=== PATIENT | male | born 1970 | race Caucasian/White ===

== ENCOUNTER 2019-04-13 09:06 | Outpatient (CLI) | payer MEDICARE, MEDICAID, SELFPAY ==
--- NOTE | 2019-04-13 09:21 | XR_ITS ---
WS: [id number] Chest 2 views, 04/13/2019 Clinical Data: LUNG MASS Comparison: AP chest, 02/19/2019. Findings: No nodules, masses or effusions are seen. The heart is normal. The pulmonary vascularity is not increased. No pneumonia or pneumothorax is seen. There is blunting of the left costophrenic angl e. There is volume loss of the left lung as a result of thoracic surgery. XR/XR chest 2V* [id number] Impression: Negative for acute cardiopulmonary disease.
== END 2019-04-13 09:07 | disposition home or self-care (01) ==
PROVIDERS: Family Provider Nurse Practitioner Family; PCP Nurse Practitioner Family; Visit Provider Urology
DX: R91.8 Other nonspecific abnormal finding of lung field (principal)
CPT/HCPCS: 71046

== ENCOUNTER 2019-12-03 09:51 | Outpatient (CLI) | payer MEDICARE, MEDICAID, SELFPAY ==
[2019-12-03 11:10] LABS: Basophils % 0.6 %; Eosinophils # 0.1 10^3/uL (0.0-0.8); Eosinophils % 2.5 %; Hematocrit 43.7 % (42.0-52.0); Lymphocytes # 0.7 10^3/uL (0.8-4.8); Lymphocytes % 20.5 %; Mean Corpuscular HGB Conc 34.3 g/dL (30.0-36.0); Mean Corpuscular Hemoglobin 35.4 pg (28.0-34.0); Mean Corpuscular Volume 103.1 fL (80-94); Mean Platelet Volume 10.1 fL (7.4-10.4); Monocytes # 0.2 10^3/uL (0.2-0.9); Monocytes % 6.6 %; Neutrophils # 2.51 10^3/uL (1.8-7.7); Neutrophils % 69.5 %; Nucleated Red Blood Cells % 0 %; Platelet Count 105 10^3/cmm (130-400); Red Blood Count 4.24 10^6/uL (4.1-5.3); Red Cell Distribution Width 12.3 % (12.1-15.1); White Blood Count 3.6 10^3/uL (4.0-10.0)
[2019-12-03 11:48] LABS: Alanine Aminotransferase 33 U/L (0-41); Alkaline Phosphatase 120 IU/L (40-130); Anion Gap 17.1 (5-19); Aspartate Amino Transferase 39 U/L (0-40); Blood Urea Nitrogen 17 mg/dL (6-20); Calcium 9.1 mg/dL (8.5-10.5); Carbon Dioxide 24 mmol/L (22-29); Chloride 101 mmol/L (98-107); Globulin 3.3 g/dL (1.3-4.6); Glomerular Filtration Rate 89.3 mL/min (90-130); Glucose 351 mg/dL (65-115); Osmolality Calculated 296 mOsm/kg (285-295); Potassium 4.1 mmol/L (3.5-5.1); Sodium 138 mmol/L (136-145); Total Bilirubin 0.6 mg/dL (0.15-1.2); Total Protein 7.3 g/dL (6.6-8.7)
[2019-12-03 14:46] LABS: Thyroid Stimulating Hormone 1.49 uIU/mL (0.27-4.20)
[2019-12-03 15:08] LABS: Carcinoembryonic Antigen 5.8 ng/mL (0.0-4.7)
--- NOTE | 2019-12-03 19:05 | ONC FU_ITS ---
Dr. Cabrales Patient Follow-Up Note Patient: Aicha Owen Unit #: [id number]: 1970 Dicatated By: Giancarlo Cabrales M.D.Date of Visit:Dec 03, 2019 Onc Med Follow-up/Prog Note Chief Complaint: Colon cancer. History of Present Illness: This is a 49 year-old man with low-grade adenocarcinoma of the ascending colon, stage IIIC (T3, N2b, M0), wild-type K-amie. He had presented in October 2013 with acute rectal bleeding. His hemoglobin nadired at 8.5 g/dL. Colonoscopy revealed an ascending colon mass, consistent with well-differentiated adenocarcinoma on the biopsy. A CT of the abdomen and pelvis on 10/29/2013 showed an ascending colon neoplasm with a small mesenteric lymph nodes medial to the colon lesion. There were no liver lesions seen. On 11/02/13 he underwent an exploratory laparotomy and right hemicolectomy with ileocolic anastomosis. Surgical pathology showed 4.3 cm low grade adenocarcinoma invading through muscularis propria into pericolic tissue, margins negative, 9/11 lymph nodes involved with metastatic disease, positive lymphatic invasion, negative venous invasion. K-AMIE mutation was not detected. His disease was thus stage IIIC (pT3, N2b, M0). Post operative course was complicated with ileus, resolved with medical management alone. He was first seen by Dr. Orr on 11/21/2013. Lacking medical insurance coverage, the patient could not afford staging PET/CT. He was recommended to begin adjuvant chemotherapy with FOLFOX regimen. Left SC port was placed. However, on 12/19/2013 he required an admission to the hospital with an acute abdominal examination. A CT of the abdomen and pelvis demonstrated unusual intraperitoneal non-intestinal air collections. The surgical intervention was not performed, the patient was treated with IV antibiotics only. Clinically, his picture improved. Repeat CT on 12/23/2013 was with unchanged findings. The patient was discharged on oral Levaquin and Flagyl therapy. Adjuvant chemotherapy with FOLFOX regimen for12 cycles was delivered 01/08/2014 -07/01/14. His treatment was complicated with neutropenia and peripheral neuropathy requiring dose adjustments. With cycle 10 the oxaliplatin was stopped due to worsening painful neuropathy in legs. A followup CT abdomen and pelvis on 06/13/2014 showed clearing of anterior low peritoneal fluid collection. There was no evidence of metastatic disease. He also complained of lower back pain and bilateral hip pain. MRI of the L-spine showed significant degenerative disease, but no evidence of metastatic disease. Surveillance colonoscopy on 10/24/2014 showed internal hemorrhoids. There was no evidence of recurrent disease. Restaging CT of the chest abdomen pelvis on 07/17/2015 was without evidence of metastatic disease. There was a progression of the fatty infiltration of liver. He continued on observation/expectant management. I had seen him for a follow-up visit in November 2017. He had multiple complaints, but his subsequent surveillance CT scans showed no evidence of neoplastic process in the chest, abdomen, and pelvis. His surveillance CT scans on 12/31/2018 reported a new left upper lobe pulmonary nodule measuring 2 x 2 by 1.5 cm. It was felt to be suspicious for a metastatic lesion or new primary lung neoplasm. Further evaluation with PET/CT on 01/06/2019 showed a 2.1 cm nodule with cavitation in the left upper lobe which was FDG avid, SUV 8.7, consistent with metastatic disease. There were no other areas of abnormal uptake on that study. Given those findings, he was recommended to see Dr. Sigala for possible resection, as the lesion was not in a location which was accessible for biopsy. After consultation with Dr. Sigala, he did agree to proceed with the resection. On 02/14/2019 he underwent left thoracoscopy with wedge resection of the medial aspect of the left upper lobe. He was noted to have adhesions anteriorly and medially in the left upper lobe which was felt to be consistent with the area noted on the CT scanner and the PET/CT. No other abnormal lesion was identifiable at the time of the procedure. Pathology on the wedge resection showed focal acute passive congestion with no tumor or significant atypia identified. With those findings, he continued on observation/expectant management. His subsequent follow-up was complicated by post thoracotomy chest pain, but there was no evidence of recurrence of the colon cancer. His medical illnesses have otherwise been limited to hypertension and chronic low back pain. He is a nonsmoker. INTERIM HISTORY: He is seen for a follow-up visit. He complains that he wears out pretty easily, but he is able to do light work. ECOG score is 1. Appetite is somewhat variable. He had lost weight, but then regained it. He is currently up 4 pounds compared to his weight here 1 year ago. He does not have fever, he does have some night sweating. He is sometimes short of breath, mainly with hot and muggy weather. He does not complain of cough. He occasionally has a little bit of chest pain. He still has postthoracotomy pain on the left side. He does not complain of nausea. His acid reflux is adequately managed with medication. He does complain that spicy or greasy foods just go right through him. Bowel function is otherwise okay. He has no complaints. He has joint pain, mainly in the hands and hips. He also has lower back pain. He has persistent neuropathy pain in his legs and feet. He is having some ongoing problems with anxiety, and he does not sleep well. Medications: Gabapentin 1 (800 mg) Tablet Oral four times a day, Hydrocodone-Acetaminophen 1 Tablet (of 10-325 mg) Oral t.i.d. PRN, Ibuprofen 1 Tablet (of 800 mg) Oral t.i.d., Lipitor 1 Tablet (of 20 mg) Oral daily, Omeprazole 1 Capsule (of 40 mg) Capsule Delayed Release Oral daily, Ondansetron HCl 1 (8 mg) Tablet Oral q 8 hours PRN, Tresiba 46 Units (of 100 Units/mL) Subcutaneous daily, Victoza Subcutaneous daily Allergies: No Known Allergies. Review of Systems: Constitutional - He energy is pretty low. He is able to do light house work and chores. His appetite is good and his weight is up about 4 pounds from last visit. No fevers. He has frequent persistent sweating at night. No hot flashes. ECOG score is 1, ENMT - No sinus congestion/drainage. No mouth sores. No sore throat or difficulty swallowing, Hematologic/Lymphatic - He bruises easily, Respiratory - He sometimes has shortness of breath, mainly when the weather is hot and muggy. No cough. No pleuritic pain or hemoptysis, Cardiovascular - He has had occasional chest pain. No palpitations, Gastrointestinal - No nausea or vomiting. Heartburn is adequately managed with omeprazole. He has diarrhea with any spicy or greasy foods. No constipation. No blood in the stool or black stools, Genitourinary (M) - No dysuria or hematuria. No urinary frequency. No urgency or incontinence, Musculoskeletal - He has joint pain in his hands, back, hips, and feet, Integumentary - No skin complications, Neurologic - No headache. He has occasional dizziness. He is taking gabapentin for neuropathy pain. No other focal neurologic symptoms, Psychiatric - He has anxiety. No depression. He does not sleep well. Vital Signs: Performed on Dec 03, 2019 11:38 Height - 68.00 in Weight - 297.2 lbs (HIGH) BSA - 2.42 sq.m BMI - 45.19 (HIGH) Temperature - 97.9 F (LOW) Pulse - 106 /min (HIGH) Respiration - 24 /min BP - 163/90 mm(hg) (HIGH) O2 Sat - 95 % (LOW) Pain - 8 Physical Examination: Constitutional - He looks pretty good generally, Eyes - Sclerae nonicteric. Conjunctivae clear, ENMT - No lesions noted in the oral cavity, Hematologic/Lymphatic - No cervical, clavicular, or axillary adenopathy, Respiratory - Lungs sound clear, Cardiovascular - Heart rhythm is regular. There is no murmur, gallop, or rub noted, Abdomen - Moderately distended. There is tenderness across the upper abdomen. Liver and spleen are not enlarged. There is no abdominal mass or ascites noted and there is no inguinal adenopathy, Extremities - There are mild venous stasis changes bilaterally, but there is no edema, Neurologic - No focal neurologic deficits. Lab/Imaging: Test performed on Dec 03, 2019 10:38 Sodium 138 mmol/L TSH 1.49 uIU/mL Potassium 4.1 mmol/L Chloride 101 mmol/L CO2 24 mmol/L Anion Gap 17.1 BUN 17 mg/dL Creatinine 0.9 mg/dL Cr Clearance (Est) 187.2400 mL/min eGFR 89.3 mL/min Glucose 351 mg/dL Calcium 9.1 mg/dL Protein, Total 7.3 g/dL Albumin 4.0 g/dL Globulin 3.3 g/dL Bilirubin, Total 0.6 mg/dL ALT (SGPT) 33 U/L AST (SGOT) 39 U/L Alkaline Phosphatase 120 IU/L WBC 3.6 10 3/uL RBC 4.24 10 6/uL HGB 15.0 g/dL HCT 43.7 % MCV 103.1 fL MCH 35.4 pg MCHC 34.3 g/dL RDW 12.3 % Platelet Count 105 10 3/cmm MPV 10.1 fL Neutrophils 2.51 10 3/uL Lymphocytes 0.7 10 3/uL Monocytes 0.2 10 3/uL Eosinophils 0.1 10 3/uL Basophils 0.0 10 3/uL Neutrophil % 69.5 % Lymphocyte % 20.5 % Monocyte % 6.6 % Eosinophil % 2.5 % Basophils % 0.6 % NRBC % 0 % CEA 5.8 ng/mL Impression: 1. Patient with low-grade invasive adenocarcinoma of the ascending colon, stage IIIC (T3, N2b, M0). He underwent right hemicolectomy on 11/02/2013. 2. He was given adjuvant chemotherapy with modified FOLFOX for 12 cycles, completed in June 2014. The treatment was complicated with grade 3 painful neuropathy, necessitating dose adjustments and omission of the oxaliplatin beginning with cycle 10. His other medical illnesses include: 3. Hypertension. 4. Degenerative arthritis/degenerative disease of the spine with chronic neck and back pain. At his follow-up visit in November 2017 he had multiple complaints, including fatigue and musculoskeletal pain, and he had very limited activity tolerance. He also complained of shortness of breath. His laboratory studies had shown a significantly low testosterone level, which could have been a contributing to the fatigue, but he did not want replacement therapy. His surveillance CT scans in December 2018 showed no evidence of a neoplastic process in the chest, abdomen, or pelvis. His surveillance CT scans 12/14/2018 showed a new pulmonary nodule in the left upper lobe, suspicious for a metastatic lesion or primary lung malignancy. The lesion was noted to be FDG avid by PET. Given those findings, he was recommended to undergo surgical resection, as the location of the mass was such that it was not accessible for needle biopsy. He then underwent thoracotomy with wedge resection of the left upper lobe on 02/14/2019. The only gross finding were adhesions. There was no identifiable tumor mass, and pathology showed no tumor or significant atypia in the surgical specimen. During subsequent follow-up he has continued to have some postthoracotomy pain. He has significant residual neuropathy pain in the legs and feet following his chemotherapy. However, he also has uncontrolled diabetes, which may be contributing factor. He has had mild leukopenia and thrombocytopenia, but that also has been persistent since his chemotherapy. Overall, his clinical status at this point appears stable with no evidence of recurrence of the colon cancer. Plan: He remains on observation/expectant management for the colon cancer. He should have CBC, comprehensive metabolic profile and CEA level repeated at least yearly, but as he is over 5 years out from completion of chemotherapy he does not require any routine surveillance imaging. He should continue with surveillance colonoscopy every 5 years, and that may be due this year. At this point he will continue his regular followup with Maisha Barron. I will see him again only as needed. However, I will give him trial of therpay with Cymbalta for the anxiety and for the neuropathy, initially at 30 mg daily for 2 weeks, then 60 mg daily. Signed By: Giancarlo Cabrales M.D. <<Signature on File>>
== END 2019-12-03 09:52 | disposition home or self-care (01) ==
LOC: ONCMED 09:56
PROVIDERS: PCP Nurse Practitioner Family; Visit Provider Internal Medicine Medical Oncology
DX: Z08 Encounter for follow-up examination after completed treatment for malignant neoplasm (principal); Z85.038 Personal history of other malignant neoplasm of large intestine; G62.0 Drug-induced polyneuropathy; D70.1 Agranulocytosis secondary to cancer chemotherapy; D69.59 Other secondary thrombocytopenia; T45.1X5D Adverse effect of antineoplastic and immunosuppressive drugs, subsequent encounter; E11.69 Type 2 diabetes mellitus with other specified complication; I10 Essential (primary) hypertension; M19.90 Unspecified osteoarthritis, unspecified site; M47.9 Spondylosis, unspecified; G89.29 Other chronic pain; F41.9 Anxiety disorder, unspecified; Z79.4 Long term (current) use of insulin; Z79.899 Other long term (current) drug therapy
CPT/HCPCS: 36415; 80053; 82378; 84443; 85025; 99214

== ENCOUNTER → 2020-03-06 16:51 | Outpatient (BNVA) | payer MEDICARE, MEDICAID, SELFPAY | PROVIDERS: PCP Nurse Practitioner Family; Visit Provider Surgery | DX: Z20.828 Contact with and (suspected) exposure to other viral communicable diseases (principal); Z01.812 Encounter for preprocedural laboratory examination | CPT/HCPCS: 87635 ==

== ENCOUNTER 2020-03-11 06:18 | Day surgery (SDC) | payer MEDICARE, MEDICAID, SELFPAY ==
[2020-03-06 13:53] VITALS: BMI 45.6
[2020-03-11 06:49] VITALS: BP 164/87; PULSE 95; RESP 18; TEMP 36.1; O2SAT 98
[2020-03-11] MEDS: sodium chloride 0.9% 1,000 ML 30 ML IV (07:00)
--- NOTE | 2020-03-11 07:01 | W.PM.OPSFHP ---
Same Day Surgery H&P Indication for Procedure/HPI DATE OF PROCEDURE: March 11, 2020 CHIEF COMPLAINT/INDICATIONFOR SURGICAL PROCEDURE: colon cancer PREOP DIAGNOSIS: screening colonoscopy PLANNED PROCEDRUE: Operation Date: 03/11/20 07:30 Proposed Procedures p Colonoscopy 10391 Z12.11(Not Applicable) - Salvador Flores MD Medications/Allergies* Home Medications Medication Instructions Recorded Confirmed Type gabapentin 800 mg tablet 800 mg PO .four times daily tab 04/10/19 03/11/20 History hydrocodone 10 mg-acetaminophen 1 tab PO Q8H PRN 04/10/19 03/11/20 History 325 mg tablet ibuprofen 800 mg tablet 800 mg PO Q6H PRN 04/10/19 03/11/20 History atorvastatin 10 mg PO DAILY 03/06/20 03/11/20 History duloxetine 60 mg PO DAILY 03/06/20 03/11/20 History insulin degludec [Tresiba 100 unit SUBCUT DAILY 03/06/20 03/11/20 History FlexTouch U-100] liraglutide [Victoza 2-Frantz] 1.8 mg SUBCUT DAILY 03/06/20 03/11/20 History pantoprazole 40 mg PO DAILY 03/06/20 03/11/20 History Allergies/Adverse Reactions Allergy/AdvReac Type Severity Reaction Status Date / Time No Known Allergies Allergy Verified 03/11/20 06:43 Current Medications: Generic Name Dose Route Start Last Admin Trade Name Freq PRN Reason Stop Dose Admin Sodium Chloride 1,000 mls @ 30 mls/hr 03/11/20 06:45 03/11/20 07:00 Sodium Chloride 0.9% IV 03/12/20 06:44 30 mls/hr .Q24H RAFAEL Administration Pertinent History/Comorbid Conditions* Family History (Updated 04/10/19 @ 08:35 by Brit Moran LPN) Diabetes CAD (coronary artery disease) Cancer Social History Smoking and tobacco status: current every day smoker smokeless tobacco Alcohol intake: current Pertinent Exam Findings alert, oriented x 3 and operative site marked Recommendations Surgery/Procedure today Coding Level of Care Code 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
[2020-03-11 07:06] LABS: Glucose Point of Care 290 mg/dL (70-110)
--- NOTE | 2020-03-11 08:04 | ANES.PREANE2 ---
Pre-Anesthetic Assessment Pre-Anesthetic Assessment: Height/Weight: Height 1.73 m Weight 136.078 kg Temp Pulse Resp BP Pulse Ox 97 F L 95 18 164/87 98 03/11/20 06:49 03/11/20 06:49 03/11/20 06:49 03/11/20 06:49 03/11/20 06:49 Preop Diagnosis: screening colonoscopy Proposed Procedure: Operation Date: 03/11/20 07:30 Proposed Procedures p Colonoscopy 27638 Z12.11(Not Applicable) - Salvador Flores MD Was Beta Johnnie taken within 24 hours: N/A Last intake: Intake Last Liquid Date 03/10/20 Last Liquid Time 22:00 Last Solid Date 03/09/20 Last Solid Time 18:00 Social: Social History: Tobacco and No alcohol Exam: Pre-Anes Outpt Exam: alert, oriented x 3, clear to auscultation bilaterally and regular rate & rhythm Airway: Submandibular: WNL Cervical ROM: WNL MP: 2 Dentition: Full Additional comments: Winn Pulmonary: Pulmonary: COPD CV/HEM: CV/HEM: HTN : : None reported Hepatic: Hepatic: None reported GI: GI: GERD Metabolic: Metabolic: DM and Morbid obesity Musc/skel: Musc/skel: None reported Neuropsych: Neuropsych: None reported Anesthetic Plan: ASA status: 3 Anesthesia: MAC Risk of > 500 ml blood loss (7ml/kg in children): No Meds/Allergies Current Medications: Current Medications Generic Name Dose Route Start Last Admin Trade Name Freq PRN Reason Stop Dose Admin Sodium Chloride 1,000 mls @ 30 ml s/hr 03/11/20 06:45 03/11/20 07:00 Sodium Chloride 0.9% IV 03/12/20 06:44 30 mls/hr .Q24H RAFAEL Administration PFSH Anesthesia PFSH: Medical History (Updated 03/11/20 @ 07:58 by Salvador Flores MD) Colon cancer Hyperlipidemia Hypertension Surgical History (Updated 03/11/20 @ 07:58 by Salvador Flores MD) H/O hemicolectomy History of removal of Port-a-Cath Status post colonoscopy (03/11/20) Family History Other CAD (coronary artery disease) Cancer Diabetes Social History Smoking and tobacco status: current every day smoker smokeless tobacco Alcohol intake: current Data Anesthesia Other Labs: Laboratory Results - last 48 hr 03/11/20 06:59 POC Glucose 290 Cardiac Studies: No Data to Display
[2020-03-11 08:06] VITALS: BP 144/104; PULSE 103; RESP 16; TEMP 36.2; O2SAT 97
--- NOTE | 2020-03-11 08:07 | ANE.PACU2 ---
Inpatient post-anesthesia follow up: Airway intact: Yes Vital signs: Temperature 97.1 F Pulse Rate 103 Respiratory Rate 16 Blood Pressure 144/104 Pulse Oximetry 97 Oxygen Delivery Me thod Room Air Oxygen Flow Rate Fraction of Inspir ed Oxygen Hydration adequate: Yes Nausea and vomiting: No Pain level: 0 Mental status: Baseline
[2020-03-11 08:14] VITALS: BP 145/102; PULSE 93; RESP 22; O2SAT 96
== END 2020-03-11 08:27 | disposition home or self-care (01) ==
PROVIDERS: PCP Nurse Practitioner Family; Visit Provider Surgery
PROC: 0DJD8ZZ Inspection of Lower Intestinal Tract, Via Natural or Artificial Opening Endoscopic (ICD-10-PCS; CPT 45378; principal; 2020-03-11 07:30)
DX: Z12.11 Encounter for screening for malignant neoplasm of colon (principal); K57.30 Diverticulosis of large intestine without perforation or abscess without bleeding; Z85.038 Personal history of other malignant neoplasm of large intestine; Z82.49 Family history of ischemic heart disease and other diseases of the circulatory system; Z83.3 Family history of diabetes mellitus; F17.290 Nicotine dependence, other tobacco product, uncomplicated; J44.9 Chronic obstructive pulmonary disease, unspecified; I10 Essential (primary) hypertension; E11.9 Type 2 diabetes mellitus without complications; E66.01 Morbid (severe) obesity due to excess calories; Z68.42 Body mass index [BMI] 45.0-49.9, adult
CPT/HCPCS: 12345; 36416; 82962; G0121; J7030

== ENCOUNTER 2020-03-21 11:01 | Outpatient (CLI) | payer MEDICARE, MEDICAID, SELFPAY ==
--- NOTE | 2020-03-21 11:10 | XR_ITS ---
WS: [id number] XR foot LT min 3V* [id number] REASON FOR EXAM: L FOOT PAIN/PAIN IN LEFT TOES FINDINGS: The joint spaces of the left forefoot are intact and well preserved. No fracture or other focal osseo us abnormality. No soft tissue abnormality. There is a valgus deformity at the DIP joint of the secon d toe. The joint spaces of the left midfoot are intact and well preserved. No fracture or other focal osseou s abnormality. The joint spaces of the left hindfoot are intact and well preserved. No fracture or other focal osseo us abnormality Small enthesophytes at the insertion of the Achilles tendon and the plantar fascia on the calcaneus. XR/XR foot LT min 3V* [id number] IMPRESSION: Valgus deformity at the DIP joint of the left second toe. Left calcaneal enthesophytes as above. No other significant abnormality.
== END 2020-03-21 11:02 | disposition home or self-care (01) ==
LOC: RAD 11:07
PROVIDERS: PCP Nurse Practitioner Family; Visit Provider Family Medicine
DX: M79.675 Pain in left toe(s) (principal); M21.072 Valgus deformity, not elsewhere classified, left ankle; M25.775 Osteophyte, left foot
CPT/HCPCS: 73630

== ENCOUNTER 2022-01-15 08:23 | Outpatient (CLI) | payer MEDICARE, MEDICAID, SELFPAY ==
--- NOTE | 2022-01-15 08:41 | US_ITS ---
WS: [id number] RIGHT UPPER QUADRANT ULTRASOUND HISTORY: Abdominal PAIN, HX OF HERNIA REPAIR COMPARISON: None available. Liver: 18.6 cm in length. Enlarged dense liver. The entire liver is poorly visualized. Marked heterog eneity throughout the liver. Portal Vein: Normal hepatopetal flow with monophasic waveform. Gallbladder: Mildly contracted and difficult to visualize. No stones are evident. CBD: 0.5 cm Pancreas: Completely obscured by bowel gas. Right kidney: 11.7 cm in length. Normal size and echogenicity. No hydronephrosis or mass. Aorta and IVC: Poorly visualized. No ascites. There is a large amount shadowing from the mid abdomen near the patient's discomfort. Shadowing may b e related to hernia repair and mesh placement. Cannot be further evaluated by ultrasound. US/US abdomen limited [id number] IMPRESSION: 1. Quality of this examination is suboptimal by body habitus. 2. Enlarged liver with severe diffuse hepatic steatosis. 3. Slightly contracted gallbladder with no stones. 4. Pancreas not visualized.
== END 2022-01-15 08:24 | disposition home or self-care (01) ==
LOC: RAD 08:25
PROVIDERS: PCP Nurse Practitioner Family; Visit Provider Nurse Practitioner Family
DX: R10.9 Unspecified abdominal pain (principal); Z98.890 Other specified postprocedural states; R16.0 Hepatomegaly, not elsewhere classified; K76.0 Fatty (change of) liver, not elsewhere classified
CPT/HCPCS: 76705

== ENCOUNTER → 2022-03-02 10:03 | Outpatient (BNVA) | payer MEDICARE, MEDICAID, SELFPAY | PROVIDERS: PCP Nurse Practitioner Family; Visit Provider Internal Medicine Cardiovascular Disease | DX: R07.89 Other chest pain (principal); R06.02 Shortness of breath; I10 Essential (primary) hypertension; E11.9 Type 2 diabetes mellitus without complications; Z79.84 Long term (current) use of oral hypoglycemic drugs; E78.5 Hyperlipidemia, unspecified; F17.220 Nicotine dependence, chewing tobacco, uncomplicated | CPT/HCPCS: 93005; 99205 ==

== ENCOUNTER 2022-03-18 06:37 | Outpatient (CLI) | payer MEDICARE, MEDICAID, SELFPAY ==
--- NOTE | 2022-03-18 07:15 | USCV_ITS ---
Aicha Owen Age: 51 Gender: M : 1970 Exam Date: 03/18/2022 06:53 Ordering Phys: Be Correa MD ([email or web address]) Technologist: MOINK [place] [facility] [place]ication: SILVESTRE/CHEST PAIN BP: 134 / 86 HR: 80 Rhythm: Sinus Technical Quality: Technically difficult study MEASUREMENTS (Male / Female) Normal Values 2D ECHO LVOT Diameter 2.0 cm LV Ejection Fraction MOD 2C 57.2 % LV Ejection Fraction 2C AL 57.3 % LA Diameter 3.6 cm LA Width 3.1 cm LA Height 3.9 cm RA Width 3.2 cm RA Height 3.6 cm Aorta at Sinotubular Diameter 2.5 cm M-MODE Aortic Annulus Diameter 2.7 cm LA Ao Ratio MM 1.3 MV E Point Septal Separation 0.6 cm DOPPLER AV Peak Velocity 118.0 cm/s LVOT Peak Velocity 105.0 cm/s AV Area Cont Eq vti 3.4 cm squared AV Area Cont Eq pk 2.9 cm squared MV Peak Velocity 95.0 cm/s MV Area PHT 3.7 cm squared Mitral E to A Ratio 0.8 MV E' Velocity 43.0 cm/s Mitral E to MV E' Ratio 7.3 Mitral E to LV E' Lateral Ratio 6.7 Mitral E to LV E' Septal Ratio 8.0 TR Peak Velocity 164.6 cm/s TR Peak Gradient 10.8 mmHg TR Mean Velocity 138.4 cm/s TR Mean Gradient 8.0 mmHg TR Velocity Time Integral 44.4 cm TV Peak E Velocity 52.0 cm/s Right Atrial Pressure 8.0 mmHg Pulmonary Artery Systolic Pressu 18.8 mmHg PV Peak Velocity 120.0 cm/s RV Acceleration Time 0.1 s RV Ejection Time 0.3 s RV AcT/ET 0.4 FINDINGS Left Ventricle Normal left ventricular size and systolic function, EF 61 %. Grade I/IV diastolic dysfunction (abnormal relaxation filling pattern), normal to mildly elevated filling pressures. Right Ventricle The right ventricle is normal in size and function. Right Atrium The right atrium is normal in size. Left Atrium The left atrium is normal in size. Mitral Valve Trace mitral valve regurgitation. Aortic Valve No gross abnormalities noted Tricuspid Valve Trace of tricuspid valve regurgitation. Pulmonic Valve No gross abnormalities noted Pericardium Normal pericardium without effusion. Aorta Normal ascending aorta dimension. IVC The inferior vena cava appears normal. CONCLUSIONS Normal left ventricular size and systolic function, EF 61 %. Grade I/IV diastolic dysfunction (abnormal relaxation filling pattern), normal to mildly elevated filling pressures. Trace of mitral and tricuspid regurgitation. There is no pericardial effusion. There are no intracardiac masses. Technically difficult study because of the poor ultrasonic window. Dr Be Correa MD FACC (Electronically Signed) Final Date: 18 March 2022 08:09 S
== END 2022-03-18 06:38 | disposition home or self-care (01) ==
LOC: RAD 06:37
PROVIDERS: PCP Nurse Practitioner Family; Visit Provider Internal Medicine Cardiovascular Disease
DX: R06.09 Other forms of dyspnea (principal); R07.89 Other chest pain; I08.1 Rheumatic disorders of both mitral and tricuspid valves
CPT/HCPCS: 93306

== ENCOUNTER 2022-04-12 08:08 | Outpatient (CLI) | payer MEDICARE, MEDICAID, SELFPAY ==
--- NOTE | 2022-04-12 | ECG_ITS ---
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 Interpretive Statements NAME OF STUDY: LEXISCAN SESTAMIBI STRESS TEST INDICATION: Chest Pain, SILVESTRE, fatigue, PROCEDURE: At the baseline, the EKG revealed normal sinus rhythm with a poor R wave progression. The baseline heart was 80 bpm with a blood pressue of 162/105 mm of Hg Lexiscan was infused over a period of 20 seconds. A total of 0.4 milligrams of Lexiscan was infused. The stress phase was continued for a total of 5 minutes. Heart rate at the end of the stress phase was 97 bpm with a blood pressure 129/92 mm of Hg. The EKG at the peak infusion revealed no significant changes. Sestamibi was injected 20 seconds after the Lexiscan infusion. Heart rate at the end of the recovery phase was 93 bpm with a blood pressure of 126/100 mm of Hg. CONCLUSION: 1. No significant EKG changes with the LexiScan infusion 2. No LexiScan induced chest pain or cardiac arrhythmia 3. Normal blood pressure and heart rate response 4. Sestamibi/sestamibi perfusion scan pending; see separate report. Electronically Signed On 04-16-2022 11:39:03 EYELET PUNCH OPERATOR by Be Correa M.D. [email or web address]
[2022-04-12 08:27] VITALS: BMI 41.0
--- NOTE | 2022-04-12 08:54 | NMCV_ITS ---
NM naima perf SPECT r/s* [id number] Aicha Owen Age: 51 Gender: M : 1970 Exam Date: 04/12/2022 09:43 Ordering Phys: Be Correa MD ([email or web address]) Technologist: VERN Yi Exam Location: [facility] Indications: CHEST PAIN STRESS TEST Please [facility] IMAGE PROTOCOL Rest/Stress 1 Lexiscan Day Radiopharmaceutical Dose (mCi) Administration Site Administered by Rest: Tc-99m 10.5 IV VERN Davila Sestamibi Stress:Tc-99m 32.9 IV VERN Yi Sestamiqasim Rest: 12-Apr-2022 60 Discovery 630 Stress: 12-Apr-2022 30 Discovery 630 0.4mg Lexiscan. Images obtained in supine and prone position. SPECT RESULTS Technical Quality: Excellent Raw Data Analysis: Normal Image Corrections: No attenuation or motion correction applied Summed Stress Score: 4 Summed Rest Score: 1 Summed Difference Score: 3 PERFUSION FINDINGS Small area of moderately decreased tracer uptake in the mid inferolateral and apical lateral regions. Significant reversibility was noted in these regions, addressed. FUNCTIONAL RESULTS (calculated via Gated SPECT) Stress Image LV EF (%): 69 Stress EDV (mL):102 TID: 1.05 Stress ESV (mL):32 FUNCTIONAL FINDINGS: Segmental wall motion analysis revealed no gross wall motion normalities. IMPRESSIONS 1. Myocardial perfusion imaging revealing small area of moderately decreased tracer uptake in the inferolateral and apical regions with difficult reversibility suggesting ischemia in the distribution of the left circumflex artery. 2. Normal LV ejection fraction of 69%. 3. LV wall motion analysis revealing no gross wall motion abnormalities. 4. Normal LV volume No similar previous studies are available for comparison Dr Be Correa MD [facility] (Electronically Signed) Final Date: 12 April 2022 16:15 S
[2022-04-12] MEDS: regadenoson 0.4 Mg/5 ml Syringe IVP (10:31)
[2022-04-12 10:49] VITALS: BP 126/100; PULSE 94
== END 2022-04-12 08:09 | disposition home or self-care (01) ==
LOC: CDL 08:11
PROVIDERS: PCP Nurse Practitioner Family; Visit Provider Internal Medicine Cardiovascular Disease
DX: R07.9 Chest pain, unspecified (principal); R06.09 Other forms of dyspnea; R53.83 Other fatigue
CPT/HCPCS: 36415; 78452; 93017; 96374; A9500; J2785

== ENCOUNTER → 2022-06-08 13:08 | Outpatient (BNVA) | payer MEDICARE, MEDICAID, SELFPAY | PROVIDERS: PCP Nurse Practitioner Family; Visit Provider Internal Medicine Cardiovascular Disease | DX: R94.39 Abnormal result of other cardiovascular function study (principal); R07.89 Other chest pain; E78.5 Hyperlipidemia, unspecified; E11.9 Type 2 diabetes mellitus without complications; I10 Essential (primary) hypertension; F17.220 Nicotine dependence, chewing tobacco, uncomplicated; Z79.82 Long term (current) use of aspirin; Z79.85 Long-term (current) use of injectable non-insulin antidiabetic drugs | CPT/HCPCS: 99215 ==

== ENCOUNTER 2022-07-27 07:16 | Outpatient (CLI) | payer MEDICARE, MEDICAID, SELFPAY ==
[2022-07-27] VITALS (12 sets, daily range): BP systolic 133–153; BP diastolic 65–93; PULSE 70–90; RESP 15–19; TEMP 37; O2SAT 95–97; BMI 40.7
--- NOTE | 2022-07-27 07:30 | XACV_ITS ---
Exam Room: 2 Ht: 173 cm Wt: 122 kg BSA: 2.47 m2 Gender: Male : 1970 Any Known Allergies: No known allergies Exam Priority: Routine Procedure(s): Procedure Description: Diagnostic procedure Procedure Description: Left Heart Catheterization Procedure Description: Left ventriculography Procedure Description: Coronary Angiography Sunny MUELLER; Diagnostic Cath Status: Elective Diagnostic Findings * The left main is a medium caliber vessel with no significant stenotic lesions. * The left anterior descending artery is a medium caliber vessel which appears to taper off towards the LV apex. It gives the proximal diagonal branch., Which is of equal caliber as that of the left anterior descending artery. It appears to bifurcate proximally. No significant or stenotic lesions were noted. * The left circumflex artery is a medium caliber nondominant vessel with no significant stenotic lesions. * The right coronary artery has a high and posterior takeoff. Is a medium caliber vessel with no significant stenotic lesions. Conclusions 1. 52-year-old white male with a history of hypertension, diabetes, dyslipidemia, obstructive sleep apnea and a strong family history for premature atherosclerotic heart diseas, he is presenting with complaints of exertional dyspnea, easy fatigability and chest discomfort. Had an abnormal Myocardial perfusion imaging suggesting ischemia in the distribution of the left circumflex artery. In view of the patient's ongoing and worsening symptoms, in order to further evaluate the coronary status, a cardiac catheterization was recommended. Patient underwent left heart catheterization with left and right coronary angiogram, LV angiogram and graft angiogram today. The findings are as follows. 2. The left main, left anterior descending artery, left circumflex and the right coronary artery found to have no significant stenotic lesions. LV ejection fraction was around 50%. The LVEDP was 24 mmHg suggesting left-ventricular diastolic dysfunction.. Diagnostic RX Recommendation: medical therapy and/or counseling LV EDP: 24 mmHg Ventriculography Ejection Fraction: 50.0 % Left Ventriculography Findings: * The LV gram was performed in the GARCES projection. The LV cavity appears to be of normal size. LV ejection fraction around 50%. No significant mitral valve prolapse or mitral regurgitation. The LVEDP was 24 mmHg. . Pressures Phase:Rest AO : 119 / 76 ( 92 ) @ 9:55:00 AM 114 / 88 ( 101 ) @ 10:02:00 AM 114 / 93 ( 104 ) @ 10:06:00 AM 148 / 37 ( 90 ) @ 10:12:00 AM LV : 152 / -8 / 24 @ 10:11:00 AM 147 / -3 / 24 @ 10:12:00 AM Clinical Evaluation EBL: 5mL-10mL Procedural Details Procedure Consent Obtained. Current Diagnosis : Chest Pain. Pre-Procedure Time Out. Identified patient by full name and date of as verbalized by the patient/guarantor. Does the consent match the physician's order: Yes. Accurate & Complete Informed Consent: Yes. Inpatient/Outpatient History & Physical on Chart: Yes. If H&P is completed, is and addenduem needed: No; If yes, is the addendum complete: N/A. Visualize and Verify Site with Patient/Guarantor: N/A. Relevant Radiology Images available: Yes. Pre-op teaching completed and patient verbalized understanding. The risks, benefits, and alternatives of sedation and/or procedure were discussed by physician. The patient agrees to continue. Procedure started. [facility] Clinical Fraility Score: 3: Managing Well. Shipping & Receiving Lead Indications: Worsening Angina. Chest Pain Symptom Assessment: Typical Angina Symptoms. Correct patient, site and procedure confirmed by cath team. Current diagnosis: Chest Pain. PERRLA. Strong, equal hand manager division bilaterally. Lungs clear x 5 lobes. IV Site on Arrival: 20 gauge in the right anticubital. IV Fluids: 0.9% NaCl at KVO. 250 mL infused prior to company laborer. Pre Procedural Pulses: bilateral dorsalis pedis was 3+. Pre Procedural Pulses: bilateral posterior tibial was Doppled. Pre Procedural Pulses: bilateral radial was 3+. Oxygen started at 2liters/min via nasal canula. right groin was prepped with chloroprep then draped in the usual sterile fashion. right radial was prepped with chloroprep then draped in the usual sterile fashion. Physician arrived. Physician scrubbed in. Immediate Pre-Procedure Time Out. Correct Patient: Yes; Correct Procedure: Yes; Correct Site: Yes; Correct Patient Position: Yes; Correct Supplies: Yes; Dried Flammable Prep: Yes; Blood Products Available: N/A;. Lidocaine 1% infiltrated to the right radial. Arterial access obtained. A 5 romanian Sterling catheter in over wire. Baseline sample Acquired. HR: 58 BPM. Catheter removed over the exchange wire. A 5 romanian TIG catheter in over wire. Multiple views taken of left coronary artery. Catheter redirected to the RCA. Catheter removed over the exchange wire. A 5 romanian JR4 catheter in over wire. Multiple views taken of right coronary artery. Catheter removed over the exchange wire. A 5 romanian Angled Pig catheter in over wire. EDP Sample taken: LV 152/-9,24; HR: 51 BPM; SpO2: 97%. LV gram performed in GARCES @ 10 mL/second for a total of 30 mL. EDP Sample taken: LV 147/-4,24; HR: 92 BPM; SpO2: 98%. Pullback taken: LV Off; AO Off; Mean: , Peak to Peak: , SEP: ; HR: 81 BPM; SpO2: 98%. Catheter removed over the exchange wire. Physician review of cine films. Physician scrubbed out. A TR Band was successful obtaining hemostatsis at the Right Radial artery insertion site. Post Procedure: Pulses reassessed and unchanged. PERRLA. Strong, equal hand manager division bilaterally. No VTE prophylaxis required. Medication's Wasted: Lidocaine 1% = 2 mL. Medication's Wasted: Nitro = 49.8 mg. Medication's Wasted: Heparin = 1000 units. Medication's Wasted: Other = Fentanyl 50mcg. Total IV fluids: 128 mL. Post-op diagnosis: Non-obstructive CAD. Complications: None. Estimated blood loss: 5mL-10mL. Responsiveness - Normal response to verbal stimuli; alert and oriented, PERRLA. Airway - Unaffected, no intervention required; spontaneous ventilation. Circulation: W/N/L, pulses unchanged. Nausea/Vomiting: No. Procedure completed. Patient transferred by wheelchair to CPRU. Vital chart was stopped. Access Site Site: Right Radial artery Sheath Size: 6 Fr Hemostasis Method: TR Band Hemostasis Success: Successful Procedure Medications Start: 8:49 AM Stop: 8:49 AM Medication: Versed Amount: 1 mg Route: I.V. Start: 8:49 AM Stop: 8:49 AM Medication: Fentanyl Amount: 50 mcg Route: I.V. Start: 8:51 AM Stop: 8:51 AM Medication: Versed Amount: 1 mg Route: I.V. Start: 8:52 AM Stop: 8:52 AM Medication: Nitrogylcerin Amount: 200 mcg Route: I.A. Start: 8:52 AM Stop: 8:52 AM Medication: Verapamil Amount: 5 mg Route: I.A. Start: 8:54 AM Stop: 8:54 AM Medication: Heparin Amount: 5000 units Route: I.V. I, the attending physician, have reviewed and verified all procedure medications. Yes, all medications given per verbal order History/Risk Factors Hypertension: Yes Dyslipidemia: Yes Peripheral Arterial Disease (PAD): No Myocardial Infarction (WA): No Obesity: No Renal Disease: No Prior Interventions PCI: No CABG: No Valve Surgery: No Report Signatures Finalized by Dr Be Correa MD [facility] on 07/27/2022 08:50 PM
[2022-07-27] MEDS: diphenhydrAMINE 50 mg Capsule PO (07:39)
[2022-07-27 08:02] LABS: Basophils % 0.5 %; Eosinophils # 0.1 10^3/uL (0.0-0.8); Eosinophils % 1.9 %; Hematocrit 42.8 % (42.0-52.0); Hemoglobin 15.1 g/dL (11.7-16.6); Lymphocytes # 1.1 10^3/uL (0.8-4.8); Lymphocytes % 25.1 %; Mean Corpuscular HGB Conc 35.3 g/dL (30.0-36.0); Mean Corpuscular Hemoglobin 36.9 pg (28.0-34.0); Mean Corpuscular Volume 104.6 fl (80-94); Mean Platelet Volume 8.9 fL (7.4-10.4); Monocytes # 0.4 10^3/uL (0.2-0.9); Monocytes % 9.7 %; Neutrophils # 2.65 10^3/uL (1.8-7.7); Neutrophils % 62.6 %; Nucleated Red Blood Cells % 0 %; Platelet Count 147 10^3/cmm (130-400); Red Blood Count 4.09 10^6/uL (4.1-5.3); Red Cell Distribution Width 12.5 % (12.1-15.1); White Blood Count 4.2 10^3/uL (4.0-10.0)
[2022-07-27 08:04] LABS: Glucose Point of Care 149 mg/dL (70-110)
[2022-07-27 08:19] LABS: Anion Gap 15.2 (5-19); Blood Urea Nitrogen 15 mg/dL (6-20); Calcium 9.2 mg/dL (8.5-10.5); Carbon Dioxide 26 mmol/L (22-29); Chloride 104 mmol/L (98-107); Glomerular Filtration Rate 63.3 mL/min (90-130); Glucose 150 mg/dL (65-115); Osmolality Calculated 296 mOsm/kg (285-295); Potassium 4.2 mmol/L (3.5-5.1); Sodium 141 mmol/L (136-145)
--- NOTE | 2022-07-27 08:23 | P.HP_ITS ---
Providers/Chief Complaint Admitting Physician: MANUEL Correa MD Primary Care Provider: Romeo Farris MD Chief Complaint: R94.39 History of Present Illness Aicha Owen is a 52 year old male with a history of diabetes, high blood pressure, dyslipidemia and a strong family history for premature atherosclerotic heart disease, is presenting with increasing episodes of chest pains and easy fatigability. He is scheduled for elective cardiac catheterization. He had a Myocardial perfusion imaging which revealed area of reversible defect in the inferolateral and apical regions, suggesting ischemia in the distribution of the left circumflex artery. Review of Systems Narrative: CONSTITUTIONAL: No fever or chills. EYES: No blurring of vision or other visual disturbances lately. ENT: No hoarseness of voice, auditory disturbances or sore throat. CARDIOVASCULAR: As mentioned above. RESPIRATORY: Shortness of breath with exertion GASTROINTESTINAL: No hematemesis or melena. GENITOURINARY: No dysuria or hematuria. INTEGUMENTARY: No skin rashes or history of skin cancer. NEURO: No transient ischemic attacks or amaurosis. PSYCHIATRIC: No history of psychosis or major depression. HEMATOLOGIC: No bleeding disorders or significant anemia. ENDOCRINE: Type 2 diabetes MUSCULOSKELETAL: No recent joint pain or swelling. ALLERGY/IMMUNOLOGY: As mentioned above. Medications/Allergies Home Medications Medication Instructions Recorded Confirmed Last Taken Type gabapentin 800 mg tablet 800 mg PO .four times daily 04/10/19 07/27/22 07/26/22 18:00 History hydrocodone 10 mg-acetaminophen 1 tab PO Q8H PRN Pain 04/10/19 07/27/22 07/26/22 18:00 History 325 mg tablet ibuprofen 800 mg tablet 800 mg PO Q6H PRN Pain 04/10/19 07/27/22 07/26/22 11:00 History atorvastatin 10 mg tablet 10 mg PO DAILY 03/06/20 07/27/22 07/26/22 11:00 History pantoprazole 40 mg tablet,delayed 40 mg PO DAILY 03/06/20 07/27/22 07/26/22 11:00 History release albuterol sulfate 2.5 mg/3 mL 2.5 mg continuous nebulization Q6H 03/02/22 07/27/22 07/26/22 18:00 History (0.083 %) solution for nebulization PRN Shortness Of Breath amlodipine 10 mg tablet 10 mg PO DAILY 03/02/22 07/27/22 07/26/22 11:00 History aspirin 81 mg tablet,delayed 81 mg PO DAILY 03/02/22 07/27/22 07/26/22 11:00 History release (Adult Aspirin Regimen) cyclobenzaprine 10 mg tablet 10 mg PO TID PRN Muscle Spasm 03/02/22 07/27/22 07/26/22 18:00 History cyclosporine 0.05 % eye drops 1 drp ophthalmic (eye) BID 03/02/22 07/27/22 07/26/22 11:00 History (Restasis MultiDose) dapagliflozin 10 mg tablet 5 mg PO DAILY 03/02/22 07/27/22 07/26/22 11:00 History (Farxiga) fenofibrate nanocrystallized 48 mg 48 mg PO DAILY 03/02/22 07/27/22 07/26/22 11:00 History tablet isosorbide mononitrate 30 mg 30 mg PO DAILY #90 tabs 03/02/22 07/27/22 07/26/22 11:00 Rx tablet,extended release 24 hr metoprolol tartrate 25 mg tablet 25 mg PO BID 03/02/22 07/27/22 07/26/22 18:00 History nitroglycerin 0.4 mg sublingual 0.4 mg sublingual Q5M PRN chest 03/02/22 07/27/22 Unknown Rx tablet pain 30 days #30 tabs trazodone 150 mg tablet 150 mg PO DAILY 03/02/22 07/27/22 07/26/22 18:00 History Allergies Allergy/AdvReac Type Severity Reaction Status Date / Time No Known Allergies Allergy Verified 07/26/22 12:19 PFSH Acute PFSH: Medical History Colon cancer Hyperlipidemia Hypertension Surgical History H/O hemicolectomy History of removal of Port-a-Cath Status post colonoscopy (03/11/20) Family History Family/Other CAD (coronary artery disease) Cancer Stroke Grandfather Cancer Grandmother Diabetes Father Diabetes Denies family history of Clotting disorder Dementia Chronic kidney disease (CKD) Suicide Anesthesia complication Bleeding disorder Lung disease Social History Smoking and tobacco status: current every day smoker smokeless tobacco Alcohol intake: current Alcohol intake frequency: few times a week Substance/Drug Use: never Vitals/I&O/Wt Last Vital Signs Temp 98.6 F 07/27/22 08:06 Pulse 90 07/27/22 08:06 Resp 18 07/27/22 08:06 BP 142/88 07/27/22 08:06 O2 Del Method Room Air 07/27/22 08:06 Weight last 48 hrs Weight 268 lb Physical Exam Narrative: GENERAL: The patient is alert and oriented times three. Not in any acute dis tress. HEENT: No significant pallor, icterus or lymphadenopathy.Oral cavity: There are no mucous membrane lesions. NECK: Trachea appears to be central. No masses noted. No JVD or thyromegaly appreciated. RESPIRATORY: Chest is symmetrical. No intercostals muscle retraction or any accessory muscle activation. There is no chest wall tenderness. Breath sounds are heard bilaterally. No rales or rhonchi heard. No evidence of any consolidation. BREASTS: Deferred. HEART: The heart sounds are normal. No S3 or S4. No significant murmurs. No pericardial rub ABDOMEN: No vessel pulsations or distention. No tenderness. No organomegaly appreciated. Bowel sounds are normally heard. : Deferred. RECTAL: Deferred. LYMPHATIC: No lymphadenopathy noted in the neck. EXTREMITIES: No edema or cyanosis. No clubbing. MUSCULOSKELETAL: No acute joint deformities or swelling SKIN: There are no significant rashes or ecchymosis NEUROPSYCHIATRIC: The patient is alert and oriented x3. Appears to be in a good mood. No tremors or rigidity noted. Data 07/27/22 07:44 07/27/22 07:44 Other Labs: Laboratory Last Values WBC 4.2 10^3/uL (4.0-10.0) 07/27/22 07:44 RBC 4.09 10^6/uL (4.1-5.3) L 07/27/22 07:44 Hgb 15.1 g/dL (11.7-16.6) 07/27/22 07:44 Hct 42.8 % (42.0-52.0) 07/27/22 07:44 MCV 104.6 fl (80-94) H 07/27/22 07:44 MCH 36.9 pg (28.0-34.0) H 07/27/22 07:44 MCHC 35.3 g/dL (30.0-36.0) 07/27/22 07:44 RDW 12.5 % (12.1-15.1) 07/27/22 07:44 Plt Count 147 10^3/cmm (130-400) 07/27/22 07:44 MPV 8.9 fL (7.4-10.4) 07/27/22 07:44 Neut % (Auto) 62.6 % 07/27/22 07:44 Lymph % (Auto) 25.1 % 07/27/22 07:44 [place] % (Auto) 9.7 % 07/27/22 07:44 Eos % (Auto) 1.9 % 07/27/22 07:44 Baso % (Auto) 0.5 % 07/27/22 07:44 Neut # (Auto) 2.65 10^3/uL (1.8-7.7) 07/27/22 07:44 Lymph # (Auto) 1.1 10^3/uL (0.8-4.8) 07/27/22 07:44 [place] # (Auto) 0.4 10^3/uL (0.2-0.9) 07/27/22 07:44 Eos # (Auto) 0.1 10^3/uL (0.0-0.8) 07/27/22 07:44 Baso # (Auto) 0.0 10^3/uL (0.0-0.1) 07/27/22 07:44 Nucleated RBC % (auto) 0 % 07/27/22 07:44 Nucleated RBCs # 0.0 /100WBC 07/27/22 07:44 Sodium 141 mmol/L (136-145) 07/27/22 07:44 Potassium 4.2 mmol/L (3.5-5.1) 07/27/22 07:44 Chloride 104 mmol/L (98-107) 07/27/22 07:44 Carbon Dioxide 26 mmol/L (22-29) 07/27/22 07:44 Anion Gap 15.2 (5-19) 07/27/22 07:44 BUN 15 mg/dL (6-20) 07/27/22 07:44 Creatinine 1.2 mg/dL (0.7-1.2) 07/27/22 07:44 GFR Calculation 63.3 mL/min (90-130) L 07/27/22 07:44 Glucose 150 mg/dL (65-115) H 07/27/22 07:44 POC Glucose 149 mg/dL (70-110) H 07/27/22 07:55 Calculated Osmolality 296 mOsm/kg (285-295) H 07/27/22 07:44 Calcium 9.2 mg/dL (8.5-10.5) 07/27/22 07:44 Other data: Echocardiogram in March of last year Normal left ventricular size and systolic function, EF 61 %. ? Grade I/IV diastolic dysfunction (abnormal relaxation filling ?pattern), normal to mildly elevated filling pressures. ?Trace of mitral and tricuspid regurgitation. ?There is no pericardial effusion. ?There are no intracardiac masses. ?Technically difficult study because of the poor ultrasonic ?window. A&P Assessment and plan (1) Abnormal cardiovascular stress test: (2) Dyslipidemia (high LDL; low HDL): (3) T2DM (type 2 diabetes mellitus): (4) Benign essential hypertension with target blood pressure below 140/90: (5) Chest discomfort: Plan In view of the patient's multiple risk factors for coronary artery disease, abnormal objective findings and ongoing symptoms, in order to further evaluate the coronary status, he requires a cardiac catheterization. The risk and benefits were discussed. The risk of bleeding, hematoma, vascular injury, myocardial infarction, myocardial perforation, malignant cardiac arrhythmias ,CVA, renal failure and other concomitant complications were explained in detail. Patient understood this well and consented to proceed. Attestations Medical Necessity Statement*: Patient may require 1 midnight stay in the hospital. Coding Level of Care Code 79230 Diagnoses Abnormal cardiovascular stress test R94.39 Dyslipidemia (high LDL; low HDL) E78.5 T2DM (type 2 diabetes mellitus) E11.9 Benign essential hypertension with target blood pressure below 140/90 I10 Chest discomfort R07.89
--- NOTE | 2022-07-27 08:27 | W.PM.OPSUD ---
Surgery/Procedure H&P Update DATE OF PROCEDURE: July 27, 2022 DATE H&P PERFORMED: 07/27/22 H&P UPDATE INFORMATION: I have reviewed H&P completed within last 30 days, I have examined patient prior to procedure and No changes to prior documentation PREOP DIAGNOSIS: Atherosclerotic heart disease PRIMARY INDICATION FOR PROCEDURE: Multiple risk factors for coronary artery disease, strong family history for premature heart disease, abnormal Myocardial perfusion imaging and ongoing symptoms PLANNED PROCEDURE: Operation Date: 07/27/22 08:30 Proposed Procedures [id number],R94.39(Left) - Be Correa MD PATIENT REASSESSED PRIOR TO SEDATION, WITH NO CHANGE NOTED: Yes PHYSICAL EXAM: alert, oriented x 3, clear to auscultation bilaterally and regular rate & rhythm AIRWAY EVAL/ANESTHESIA PLAN: normal airway, ASA III, Local Anesthesia, Risks, benefits & alternatives of sedation and/or procedure discussed and Patient agrees to continue as planned
--- NOTE | 2022-07-27 09:15 | SUR.PHASEII ---
Received the patien diego from the cath lab radiology technician s/p diagnostic radial LHC via wheelchair. Patient ambulated to the bed easily. A & O x3. monitoring specialist placed and vitsl signs obtained. TR band intact tot he right wrist with no bleeding or hematoma noted. Palpable radial pulse. NS infusing at 75ml/hr to the right AC IV site. Spouse at bedside. No concerns voiced at this time. Plan for DC home later this AM.
--- NOTE | 2022-07-27 10:15 | SUR.PHASEII ---
Letting the air out of the TR band per protocol. No other changes noted at this time.
== END 2022-07-27 07:17 | disposition home or self-care (01) ==
PROVIDERS: PCP Family Medicine; Visit Provider Internal Medicine Cardiovascular Disease
DX: R07.89 Other chest pain (principal); R06.00 Dyspnea, unspecified; R94.39 Abnormal result of other cardiovascular function study; E11.9 Type 2 diabetes mellitus without complications; I10 Essential (primary) hypertension; E78.5 Hyperlipidemia, unspecified; Z82.49 Family history of ischemic heart disease and other diseases of the circulatory system
CPT/HCPCS: 36415; 36416; 80048; 82962; 85025; 93458; 96361; 96365; 96367; 99152; 99153; C1769; C1887; C1894; J1644; J2250; J3010; J3490; J7030; Q0163; Q9967

== ENCOUNTER → 2022-08-02 14:53 | Outpatient (BNVA) | payer MEDICARE, MEDICAID, SELFPAY | PROVIDERS: PCP Family Medicine; Visit Provider Nurse Practitioner Family | DX: I10 Essential (primary) hypertension (principal); F17.220 Nicotine dependence, chewing tobacco, uncomplicated | CPT/HCPCS: 36415; 80048; 99214 ==

== ENCOUNTER → 2022-09-20 13:47 | Outpatient (BNVA) | payer MEDICARE, MEDICAID, SELFPAY | PROVIDERS: PCP Family Medicine; Visit Provider Specialist | DX: E78.5 Hyperlipidemia, unspecified (principal); I10 Essential (primary) hypertension; F17.200 Nicotine dependence, unspecified, uncomplicated | CPT/HCPCS: 99214 ==